=== PATIENT | female | born 1940 | race Two or more races ===

== ENCOUNTER → 2018-11-01 | Outpatient (CLI) | payer MEDICARE, MEDICAID ==
[2018-11-01 09:29] LABS: ALANINE AMINOTRANSFERASE 24 U/L (9-52); ALKALINE PHOSPHATASE 60 U/L (38-126); ASPARTATE AMINO TRANSFERASE 23 U/L (14-36); BILIRUBIN,DIRECT 0.3 mg/dL (0.0-0.4); BILIRUBIN,TOTAL 0.7 mg/dL (0.2-1.3); BLOOD UREA NITROGEN 12 mg/dL (7-20); CALCIUM 9.6 mg/dL (8.4-10.2); CHLORIDE 104 mmol/L (98-107); CHOLESTEROL 179.25 mg/dL (0-200); GLUCOSE 106 mg/dL (75-110); POTASSIUM 4.1 mmol/L (3.6-5.0); SODIUM 142.9 mmol/L (137-145); TOTAL PROTEIN 8.3 g/dL (6.3-8.2); TRIGLYCERIDES 88 mg/dL (<150)
[2018-11-01 09:32] LABS: ANION GAP 10 (5-19); CARBON DIOXIDE 29 mmol/L (22-30)
[2018-11-01 09:38] LABS: ALBUMIN 4.8 g/dL (3.5-5.0)
[2018-11-01 09:40] LABS: DIRECT LDL 81 mg/dL (<100)
== END ==
LOC: OD 07:54
PROVIDERS: ATTEND Internal Medicine Cardiovascular Disease
DX: E78.00 Pure hypercholesterolemia, unspecified (principal); I10 Essential (primary) hypertension; R73.03 Prediabetes; Z79.899 Other long term (current) drug therapy
CPT/HCPCS: 36415; 80048; 80061; 80076; 83036; 83735